=== PATIENT | female | born 1975 | race Caucasian/White ===

== ENCOUNTER 2018-02-18 12:16 | Emergency (ER) | payer OTHER ==
[~2018-02-18] VITALS: Ht 167.6 cm; Wt 93.0 kg
[2018-02-18] MEDS ORDERED: TENORMIN25 MG PO (12:49)
[2018-02-18] MEDS ORDERED: BUSPIRONE HCL10 MG PO (12:49)
[2018-02-18] MEDS ORDERED: VENTOLIN HFA18 GM INH (12:50)
[2018-02-18] MEDS ORDERED: FLUOXETINE HCL60 MG PO (12:50)
[2018-02-18] MEDS ORDERED: SYMBICORT 16010.2 GM INH (12:51)
[2018-02-18] MEDS ORDERED: TYLENOL325 M1 PO (12:52)
[2018-02-18] MEDS ORDERED: PERCOCET 5-3251 EACH PO (15:13)
== END 2018-02-18 15:30 | disposition home or self-care (01) ==
LOC: ED 12:16
DX: N23 Unspecified renal colic (principal); D13.6 Benign neoplasm of pancreas; D13.9 Benign neoplasm of ill-defined sites within the digestive system; F17.200 Nicotine dependence, unspecified, uncomplicated; Z90.710 Acquired absence of both cervix and uterus; Z88.1 Allergy status to other antibiotic agents; Z88.2 Allergy status to sulfonamides; Z88.6 Allergy status to analgesic agent; Z79.899 Other long term (current) drug therapy
CPT/HCPCS: 74176; 80048; 80076; 81001; 82977; 83615; 83690; 85025; 96361; 96374; 96375; 99284-25; J1170; J2405; J7030

== ENCOUNTER 2018-05-03 10:50 | Emergency (ER) | payer OTHER ==
[~2018-05-03] VITALS: Ht 167.6 cm; Wt 93.0 kg
[~2018-05-03 10:50] MED LIST: BUSPIRONE HCL10 MG PO; FLUOXETINE HCL60 MG PO; PERCOCET 5-3251 EACH PO; SYMBICORT 16010.2 GM INH; TENORMIN25 MG PO; TYLENOL325 M1 PO; VENTOLIN HFA18 GM INH
[2018-05-03] MEDS ORDERED: TIZANIDINE HCL2 MG PO (11:21)
[2018-05-03] MEDS ORDERED: PRAMIPEXOLE0.125 MG PO (11:21)
[2018-05-03] MEDS ORDERED: ONDANSETRON ODT8 MG PO (13:21)
[2018-05-03] MEDS ORDERED: ULTRAM50 MG PO (13:21)
== END 2018-05-03 14:00 | disposition home or self-care (01) ==
LOC: ED 10:50
DX: R10.31 Right lower quadrant pain (principal); I10 Essential (primary) hypertension; Z87.891 Personal history of nicotine dependence; Z90.710 Acquired absence of both cervix and uterus; Z88.1 Allergy status to other antibiotic agents; Z88.2 Allergy status to sulfonamides; Z88.6 Allergy status to analgesic agent; Z79.899 Other long term (current) drug therapy
CPT/HCPCS: 74177; 80053; 81001; 82150; 83690; 85025; 99284-25; J1170; J2405; J7030; Q9967